=== PATIENT | male | born 1970 | race Caucasian/White ===

== ENCOUNTER 2024-07-15 08:10 | Outpatient (OUT) | payer OTHER, SELFPAY ==
--- NOTE | 2024-07-15 | XR_ITS ---
[address] [address] Patient Name: KAREN ZUNIGA MRN: [id number] date: 1970 Sex: M Assigned Patient Location: Current Patient Location: Accession/Order Number: [id number] Exam Date: 07/15/2024 08:17 Report Date: 07/16/2024 07:01 At the request of: BATSHEVA FUNG Procedure: XR knee LT 4V PROCEDURE: XR knee LT 4V COMPARISON: None. HISTORY: LEFT KNEE PAIN FINDINGS: BONES:No acute fracture or dislocation. Mild narrowing of medial joint space. Mild marginal osteophyte formation. SOFT TISSUES:Negative. No visible soft tissue swelling. EFFUSION:None visible. OTHER: Negative. XR/XR knee LT 4V IMPRESSION: Mild osteoarthritis Electronically authenticated by: JOSE MIGUEL BRICEÑO Date: 07/16/2024 07:01
== END 2024-07-15 08:11 | disposition home or self-care (01) ==
PROVIDERS: Visit Provider Orthopaedic Surgery
DX: M25.562 Pain in left knee (principal); M17.12 Unilateral primary osteoarthritis, left knee
CPT/HCPCS: 73564